=== PATIENT | female | born 1970 | race Caucasian/White ===

== ENCOUNTER 2016-11-03 13:52 | Outpatient (CLI) ==
[2014-12-12 08:52] VITALS: BMI 28.1
[2016-11-03 14:13] LABS: BILIRUBIN,URINE Negative (NEGATIVE); KETONES,URINE Negative (NEGATIVE); LEUKOCYTE ESTERASE ,URINE Negative (NEGATIVE); NITRITE,URINE Negative (NEGATIVE); PROTEIN,URINE Negative (NEGATIVE); URINE, BLOOD Trace-lysed (NEGATIVE)
[2016-11-03 14:14] LABS: BASOPHILS # (AUTO) 0.1 K/uL (0-0.2); BASOPHILS % (AUTO) 0.9 % (0.0-3.0); EOSINOPHILS # (AUTO) 0.1 K/ul (0.0-0.7); EOSINOPHILS % (AUTO) 1.7 % (0.0-7.0); HEMATOCRIT 44.7 % (37.0-47.0); HEMOGLOBIN 14.7 g/dl (12.0-16.0); IMMATURE GRANULOCYTE % (AUTO) 0.2 % (0.0-5.0); LYMPHOCYTES # (AUTO) 2.8 K/uL (0.60-3.4); LYMPHOCYTES % (AUTO) 33.5 (10.0-50.0); MEAN CORPUSCULAR HGB CONC 32.9 (31.8-35.4); MEAN CORPUSCULAR VOLUME 88.2 fl (81.0-99.0); MONOCYTES # (AUTO) 0.6 K/uL (0.4-2.0); MONOCYTES % (AUTO) 7.6 (0-10); NEUTROPHILS # (AUTO) 4.8 K/ul (2.0-6.9); NEUTROPHILS % (AUTO) 56.1; PLATELET COUNT 192 10^3/uL (140-440); RED BLOOD COUNT 5.07 10^6/ul (4.20-5.40); WHITE BLOOD COUNT 8.46 K/ul (4.6-10.2)
[2016-11-03 14:24] LABS: ADD URINE MICROSCOPIC YES
[2016-11-03 14:26] LABS: BACTERIA,URINE 1+ (NOT PRESENT)
[2016-11-03 14:48] LABS: ALBUMIN 4.2 g/dL (3.4-5.0); ALBUMIN/GLOBULIN RATIO 1.27; ANION GAP 15.1; BILIRUBIN,TOTAL 0.53 mg/dL (0.00-1.20); BUN/CREATININE RATIO 14.45; CALCIUM 9.4 mg/dL (8.2-10.2); CREATININE 0.83 mg/dL (0.60-1.30); POTASSIUM 4.1 mmol/L (3.5-5.10); TOTAL PROTEIN 7.5 g/dL (6.4-8.2)
--- NOTE | 2016-11-03 15:45 | DI ---
EXAM: Chest two view, frontal and lateral views. HISTORY: Anxiety disorder. COMPARISON: 03/15/2012. FINDINGS: The heart size is normal. There is no pulmonary vascular congestion. The lungs are daniel r. No pleural effusion or pneumothorax is seen. No acute osseous abnormality identified. Cholecys tectomy clips noted. Since the prior study, there has been no significant interval change. IMPRESSION: No acute cardiopulmonary process.
== END 2016-11-03 13:53 | disposition home or self-care (01) ==
LOC: LAB 13:52
PROVIDERS: ATTEND Nurse Practitioner Family
DX: F41.9 Anxiety disorder, unspecified (principal); M54.6 Pain in thoracic spine
CPT/HCPCS: 36415; 80053; 81001; 85025; 87086; 93005; 93010

== ENCOUNTER 2016-11-10 06:39 | Outpatient (CLI) ==
[2014-12-12 08:52] VITALS: BMI 28.1
--- NOTE | 2016-11-10 14:17 | ECHOSTRESS ---
Date of Exam: 11/10/16 Ordering Physician: MONA Reason for Echo: ABNORMAL EKG, IRREGULAR HR, STRESS TEST--NO ISCHEMIA Auscultation: S1, S2 M-Mode Normal Adult Results LV Dimensions Normal Adult Results AoV Opening excursions >1.6 LVEDD-base- 3.5-5.8 Ao root dimensions 2.0-3.7 LVESD-base- 3.1-4.6 L. Atrium dimensions 1.9-3.8 Post. Wall thickness 0.8-1.1 IV septum (thickness) 0.7-1.2 Post. Wall excursion 0.72-1.3 Septal motion Systolic motion R. Ventricular cavity 1.5-2.0 LVEF 60% Paradoxical septal wall motion 2-D: NORMAL LEFT VENTRICULAR CONTRACTILITY--RESTING AND POST EXERCISE M-MODE: MV: AV: TV: PV: CHAMBER SIZE: WALL MOTION: NORMAL LEFT VENTRICULAR CONTRACTILITY--RESTING AND POST EXERCISE PERICARDIUM: INTERPRETATION: 1. NORMAL LEFT VENTRICULAR CONTRACTILITY--RESTING AND POST EXERCISE MTDD
--- NOTE | 2016-11-10 14:18 | STRESS ---
Date of Test: 11/10/16 Ordering Physician: SOFIA CLEMENTS Reason for Exam: ABNORMAL EKG, IRREGULAR HR, CHEST PAIN, MVP Current Medications: LISINOPRIL, METOPROLOL, XANAX, LIPITOR Physical Findings: S1, S2, NO S3 Target Heart Rate: 148/175 Resting EKG: SINUS RHYTHM/NO ACUTE CHANGES STAGE MPH/GRADE HEART RATE BPM BLOOD PRESSURE mmhg RHYTHM S-T SEGMENT UP DOWN SYMPTOMS,COMMENTS At Rest 53 118/58 SR X NONE 1 1.7/10% 132 136/82 SR X NONE 2 2.5/12% 3 3.4/14% 4 4.2/16% 5 5.0/18% Immediately After [] [] [] [] Total Time: Maximum Heart Rate Reached: [] Reason for Termination: [] Minutes Post Exercise HeartRate Blood Pressure Minutes Post Exercise HeartRate Blood Pressure Minutes Post Exercise HeartRate Blood Pressure INTERPRETATION: 1. []
== END 2016-11-10 06:40 | disposition home or self-care (01) ==
LOC: CAR 06:39
PROVIDERS: ATTEND Nurse Practitioner Family
DX: R94.31 Abnormal electrocardiogram [ECG] [EKG] (principal)

== ENCOUNTER 2017-01-02 08:09 | Outpatient (CLI) ==
[2014-12-12 08:52] VITALS: BMI 28.1
[2017-01-02 08:37] LABS: HEMATOCRIT 44.1 % (37.0-47.0); HEMOGLOBIN 15.4 g/dl (12.0-16.0); MEAN CORPUSCULAR HEMOGLOBIN 31.6 pg (27.0-31.0); MEAN CORPUSCULAR HGB CONC 34.9 (31.8-35.4); MEAN CORPUSCULAR VOLUME 90.6 fl (81.0-99.0); RED BLOOD COUNT 4.87 10^6/ul (4.20-5.40); WHITE BLOOD COUNT 11.75 K/ul (4.6-10.2)
[2017-01-02 08:57] LABS: ALBUMIN 3.7 g/dL (3.4-5.0); ANION GAP 13.4; BUN/CREATININE RATIO 15.9; CALCIUM 9.5 mg/dL (8.2-10.2); CHOL/HDL RATIO 3.2 (4.5-5.5); CREATININE 0.88 mg/dL (0.60-1.30); PHOSPHORUS 3.3 mg/dL (2.5-4.9); POTASSIUM 4.4 mmol/L (3.5-5.10)
[2017-01-03 06:24] LABS: URINE CREATINE 120.8 mg/dL (Not Estab.)
== END 2017-01-02 08:10 | disposition home or self-care (01) ==
LOC: LAB 08:09
PROVIDERS: ATTEND Specialist
DX: R80.1 Persistent proteinuria, unspecified (principal)
CPT/HCPCS: 36415; 80061; 80069; 82570; 84156; 85027

== ENCOUNTER 2017-07-29 13:46 | Outpatient (CLI) ==
[2014-12-12 08:52] VITALS: BMI 28.1
[2017-07-29 13:58] LABS: BILIRUBIN,URINE Negative (NEGATIVE); KETONES,URINE Negative (NEGATIVE); LEUKOCYTE ESTERASE ,URINE 1+ (NEGATIVE); NITRITE,URINE Negative (NEGATIVE); PH,URINE 5.5 (5-9); PROTEIN,URINE 1+ (NEGATIVE); URINE, BLOOD 2+ (NEGATIVE)
[2017-07-29 14:18] LABS: ADD URINE MICROSCOPIC YES
[2017-07-29 14:24] LABS: BACTERIA,URINE 1+ (NOT PRESENT)
== END 2017-07-29 13:47 | disposition home or self-care (01) ==
LOC: LAB 13:46
PROVIDERS: ATTEND Nurse Practitioner Family
DX: R31.9 Hematuria, unspecified (principal)
CPT/HCPCS: 81001; 87086

== ENCOUNTER 2017-08-06 07:19 | Outpatient (CLI) ==
[2014-12-12 08:52] VITALS: BMI 28.1
[2017-08-06 07:52] LABS: HEMATOCRIT 43.4 % (37.0-47.0); HEMOGLOBIN 15.3 g/dl (12.0-16.0); MEAN CORPUSCULAR HEMOGLOBIN 33.5 pg (27.0-31.0); MEAN CORPUSCULAR HGB CONC 35.3 (31.8-35.4); RED BLOOD COUNT 4.57 10^6/ul (4.20-5.40); WHITE BLOOD COUNT 9.45 K/ul (4.6-10.2)
[2017-08-06 07:55] LABS: BILIRUBIN,URINE Negative (NEGATIVE); KETONES,URINE Negative (NEGATIVE); LEUKOCYTE ESTERASE ,URINE Negative (NEGATIVE); NITRITE,URINE Negative (NEGATIVE); PH,URINE 5.5 (5-9); PROTEIN,URINE Negative (NEGATIVE); URINE, BLOOD Trace-lysed (NEGATIVE)
[2017-08-06 07:56] LABS: ADD URINE MICROSCOPIC YES
[2017-08-06 08:16] LABS: ALBUMIN 3.7 g/dL (3.4-5.0); ANION GAP 12.4; BUN/CREATININE RATIO 17.97; CALCIUM 9.8 mg/dL (8.2-10.2); CHOL/HDL RATIO 3.6 (4.5-5.5); CREATININE 0.89 mg/dL (0.60-1.30); PHOSPHORUS 3.2 mg/dL (2.5-4.9); POTASSIUM 4.4 mmol/L (3.5-5.10); URIC ACID 4.9 mg/dL (2.4-6.0)
[2017-08-07 08:14] LABS: URINE CREATININE 29.8 mg/dL (Not Estab.); URINE TOTAL PROTEIN 12.8 mg/dL (Not Estab.)
== END 2017-08-06 07:20 | disposition home or self-care (01) ==
LOC: LAB 07:19
PROVIDERS: ATTEND Specialist
DX: N18.2 Chronic kidney disease, stage 2 (mild) (principal); E78.5 Hyperlipidemia, unspecified
CPT/HCPCS: 36415; 80061; 80069; 81001; 82570; 84156; 84550; 85027

== ENCOUNTER 2017-11-26 16:07 | Outpatient (CLI) ==
[2014-12-12 08:52] VITALS: BMI 28.1
== END 2017-11-26 16:08 | disposition home or self-care (01) ==
LOC: LAB 16:07
PROVIDERS: ATTEND Specialist
DX: R80.1 Persistent proteinuria, unspecified (principal)
CPT/HCPCS: 36415; 80069; 81001; 82570; 84156

== ENCOUNTER 2018-03-22 07:30 | Outpatient (CLI) ==
[2014-12-12 08:52] VITALS: BMI 28.1
== END 2018-03-22 07:31 | disposition home or self-care (01) ==
LOC: LAB 07:30
PROVIDERS: ATTEND Nurse Practitioner Family
DX: F41.9 Anxiety disorder, unspecified (principal); N18.2 Chronic kidney disease, stage 2 (mild); Z72.0 Tobacco use
CPT/HCPCS: 36415; 80061; 80069; 82570; 84156; 84443; 85025

== ENCOUNTER 2018-08-12 14:52 | Outpatient (CLI) ==
[2014-12-12 08:52] VITALS: BMI 28.1
== END 2018-08-12 14:53 | disposition home or self-care (01) ==
LOC: LAB 14:52
PROVIDERS: ATTEND Specialist
DX: R80.1 Persistent proteinuria, unspecified (principal)
CPT/HCPCS: 36415; 80069; 81001; 82570; 84156; 84550

== ENCOUNTER 2019-04-07 07:18 | Outpatient (CLI) ==
[2014-12-12 08:52] VITALS: BMI 28.1
== END 2019-04-07 07:19 | disposition home or self-care (01) ==
LOC: LAB 07:18
PROVIDERS: ATTEND Specialist
DX: N18.2 Chronic kidney disease, stage 2 (mild) (principal); E78.5 Hyperlipidemia, unspecified
CPT/HCPCS: 36415; 80053; 80061; 81001; 82550; 82570; 84156; 84550

== ENCOUNTER 2019-04-19 10:01 | Emergency (ER) ==
[2019-04-19 10:05] VITALS: BP 142/90; TEMP 98.7; BMI 31.0
--- NOTE | 2019-04-19 10:05 | ED.PDOC ---
General ED Provider: Dr. MEGHNA VILLANUEVA Chief Complaint: Urinary Problem Stated Complaint: Complains of pain in lower abdomen and suprapubic region, vaginal region. Low back aching. Denies fever, chills , dysuria or vaginal discharge. States eval by her kidney specialist several days ago but urine test was neg for UTI. Past history kidney disorder. Time Seen by Physician: 10:15 Mode of Arrival: Walk-In Information Source: Patient Exam Limitations: No limitations Primary Care Provider: [facility] Nursing and Triage Documentation Reviewed and Agree: Yes Does patient meet sepsis criteria?: No System Inflammatory Response Syndrome: Not Applicable Sepsis Protocol: For patient's 13 years and over: Temp is 96.8 and below OR 101 and greater Pulse >90 BPM Resp >20/minute Acutely Altered Mental Status Are patient's symptoms suggestive of a new infection, such as: -Pneumonia -Skin, Soft Tissue -Endocarditis -UTI -Bone, Joint Infection -Implantable Device -Acute Abdominal Infection -Wound Infection -Meningitis -Blood Stream Catheter Infection -Unknown Complaint Exam - Complaint/Exam Patient Complains of: Reports: Pain Onset/Duration: 3-4 days Symptoms Are: Still present Timing: Intermittent Initial Severity: Moderate Current Severity: Mild Location of Pain: Reports: Suprapubic Character: Reports: Sharp, Dull, Cramping Aggravating: Reports: Movement Alleviating: Reports: Position Associated Signs and Symptoms: Denies: Diaphoresis, Back pain, Fever, Hematuria , Dysuria, Constipation, Blood in stool, Rectal pain, Appetite change, Nausea, Vomiting, Decreased urine output, Increased urine frequency, Increased thirst, Decreased activity, Lethargy, Abdominal Pain, Bubble bath use, Vaginal bleeding , Vaginal discharge, Genital swelling, Genital blisters, Retained foreign body Ectopic Risk Factors: Reports: None Ovarian Torsion Risk Factors: Reports: None Related Surgical History: Reports: None Abdominal Findings: Present: None Vulva Exam: Present: Normal Findings Vaginal Exam: Present: Normal Findings Adnexal Exam: Present: Normal Findings Rectal Exam: Present: Normal Findings. Absent: Internal hemorrhoids, External hemorrhoids Review of Systems - Review Of Systems Constitutional: Reports: No symptoms Eyes: Reports: No symptoms Ears, Nose, Mouth, Throat: Reports: No symptoms Respiratory: Reports: No symptoms Cardiac: Reports: No symptoms GI: Reports: No symptoms : Reports: No symptoms, Frequency Musculoskeletal: Reports: No symptoms Skin: Reports: No symptoms Neurological: Reports: No symptoms Endocrine: Reports: No symptoms Hematologic/Lymphatic: Reports: No symptoms All Other Systems: Reviewed and Negative Past Medical History - Past Medical History Previously Healthy: Yes Endocrine: Reports: None Cardiovascular: Reports: None Respiratory: Reports: None Hematological: Reports: None Gastrointestinal: Reports: None Genitourinary: Reports: Other (Renal structural or tubular dysfunction ) Neuro/Psych: Reports: None Musculoskeletal: Reports: None Cancer: Reports: None - Surgical History General Surgical History: Reports: Hysterectomy - Family History Family History: Reports: None - Social History Smoking Status: Current every day smoker Hx Substance Use: No Alcohol Screening: None Physical Exam - Physical Exam Appearance: Well-appearing, No pain distress, Well-nourished Eyes: ДМИТРИЙ, EOMI, Conjunctiva clear ENT: Ears normal, Nose normal, Oropharynx normal Respiratory: Airway patent, Breath sounds clear, Breath sounds equal, Respirations nonlabored Cardiovascular: RRR, Pulses normal, No rub, No murmur GI/: Soft (Pelvic-normal bimanual vaginal -pelvic exam without discomfort or findings. FRANCIE wnl), Nontender, No masses, Bowel sounds normal, No Organomegaly Musculoskeletal: Normal strength (Mild tenderness bilat LS region), ROM intact, No edema, No calf tenderness Skin: Warm, Dry, Normal color Neurological: Sensation intact, Motor intact, Reflexes intact, Cranial nerves intact, Alert, Oriented Psychiatric: Affect appropriate, Mood appropriate Interpretation - Radiology Interpretation Exam Interpreted: CT Scan Xray Comments: No acute findings. Mild diverticular disease Radiology Interpretation By: Radiologist Re-Evaluation - Re-Evaluation Time of Re-Evaluation: 12:30 Status: Improved Vital Signs Stable: Yes Appearance: NAD Lungs: Clear Skin: Warm and Dry Neuro: Alert and Oriented X3 CV: RRR Critical Care Note - Critical Care Note Total Time (mins): 30 Course - Course Hematology/Chemistry: 04/19/19 10:35 04/19/19 10:35 Orders, Labs, Meds: Lab Review 04/19/19 04/19/19 04/19/19 10:35 10:35 10:35 WBC 6.93 RBC 4.47 Hgb 14.7 Hct 42.7 MCV 95.5 MCH 32.9 H MCHC 34.4 RDW Coeff of Kate 12.1 Plt Count 191 Immature Gran % (Auto) 0.4 Neut % (Auto) 60.5 Lymph % (Auto) 29.9 [place] % (Auto) 6.8 Eos % (Auto) 1.7 Baso % (Auto) 0.7 Immature Gran # (Auto) 0.0 Neut # (Auto) 4.2 Lymph # (Auto) 2.1 [place] # (Auto) 0.5 Eos # (Auto) 0.1 Baso # (Auto) 0.1 Sodium 141.8 Potassium 3.98 Chloride 107.9 H Carbon Dioxide 23.8 Anion Gap 14.08 BUN 14.9 Creatinine 0.97 Estimated GFR (MDRD) 62.00 BUN/Creatinine Ratio 15.36 Glucose 100.5 Calcium 9.33 Total Bilirubin 0.61 AST 37.1 H ALT 32.6 Alkaline Phosphatase 128.5 H Total Protein 7.47 Albumin 4.49 Globulin 2.98 Albumin/Globulin Ratio 1.50 Urine Color Yellow Urine Clarity Clear Urine pH 6.0 Ur Specific [place] 1.010 Urine Protein Trace Urine Glucose (UA) Negative Urine Ketones Negative Urine Blood Trace-intact Urine Nitrite Negative Urine Bilirubin Negative Urine Urobilinogen 0.2 Ur Leukocyte Esterase Negative Urine Microscopic RBC 2-5 Ur Squamous Epith Cells 5-10 Urine Mucus Trace Orders Category Date Time Status NPO REMINDER: IMAGING ONCE CARE 04/19/19 10:32 Completed IV [ED IV/MEDIPORT/POWERPORT] .ONCE EMERGENCY 04/19/19 10:27 Active CBC W/ AUTO DIFF Stat LAB 04/19/19 10:35 Completed CMP [COMPREHENSIVE METABOLIC PANEL] Stat LAB 04/19/19 10:35 Completed GUAIAC [OCCULT BLOOD, STOOL] Stat LAB 04/19/19 12:24 Uncollected UA [URINALYSIS C & S IF INDICATED] Stat LAB 04/19/19 10:35 Completed 0.9 % Sodium Chloride [Saline Flush] MEDS 04/19/19 10:27 Active 1 syr IVF PRN PRN Ketorolac Tromethamine [Toradol] MEDS 04/19/19 12:25 Stat 30 mg IVP ONCE STA Sodium Chloride 0.9% [Sodium Chloride] 1,000 ml MEDS 04/19/19 10:[address] ABDOMEN/PELVIS W/WO CONTRAS Stat RADS 04/19/19 10:31 Completed Medications Generic Name Dose Route Start Last Admin Trade Name Freq PRN Reason Stop Dose Admin Sodium Chloride 1,000 mls @ 500 mls/hr 04/19/19 10:31 04/19/19 11:07 Sodium Chloride IV 04/19/19 12:30 500 mls/hr BOLUS STA Administration Sodium Chloride 1 syr 04/19/19 10:27 Saline Flush IVF PRN PRN To flush IV Discontinued Medications Generic Name Dose Route Start Last Admin Trade Name Freq PRN Reason Stop Dose Admin Ketorolac Tromethamine 30 mg 04/19/19 12:25 Toradol IVP 04/19/19 12:26 ONCE STA Vital Signs: Temp Pulse Resp BP Pulse Ox 04/19/19 10:01 98.7 F 84 16 142/90 H 97 Departure - Departure Time of Disposition: 12:45 Disposition: HOME SELF-CARE Discharge Problem: Abdominal discomfort, bilateral lower quadrant, Diverticulosis Instructions: Pelvic Pain in Women (ED), Diverticulosis (ED) Condition: Good Pt referred to PMD for follow-up: Yes (See PCP in 1-2 weeks) IPMP verified?: No Additional Instructions: Stay well hydrated Follow up if symptoms return or worsen Allergies/Adverse Reactions: Allergies No Known Allergies Allergy (Unverified 07/29/17 11:27) Home Medications: Ambulatory Orders Atorvastatin Calcium 40 mg PO DAILY 11/14/15 Lisinopril 5 mg PO BID 11/14/15 Alprazolam [Xanax] 0.5 mg PO ONCE PRN 04/19/19 Melatonin 1 mg PO DAILY 04/19/19 [place]-3/Dha/Epa/Fish Oil [Fish Oil 500 mg Softgel] 1 each PO DAILY 04/19/19 Disposition Discussed With: Patient
[2019-04-19] MEDS ORDERED: SODIUM CHLORIDE 1,000 ML IV STA (10:31)
--- NOTE | 2019-04-19 11:55 | CT ---
EXAM: CT abdomen pelvis with and without contrast HISTORY: Lower abdominal pain COMPARISON: None TECHNIQUE: CT abdomen pelvis performed with and without intravenous contrast. Coronal and sagittal reformatted images obtained. FINDINGS: Lung bases clear. No free air. No acute abnormalities of the bones. Mild degenerative c hange in the spine. Heart normal in size. Liver appears normal. Patient status post cholecystectom y. Pancreas unremarkable. Spleen unremarkable. Adrenals unremarkable. Sub centimeter hypodensity right kidney, too small to characterize. No hydronephrosis or nephrolithiasis. No calculi visualize d in normal course of the ureters. Aorta normal in caliber. Mild atherosclerosis. Small fat-contai noris periumbilical hernia. Small hiatal hernia. Duodenal diverticulum. No dilated loops small julianne l. Appendix appears normal. Colon unremarkable. Patient status post hysterectomy. Bladder only mi ldly distended and poorly evaluated, grossly unremarkable. No lymphadenopathy or ascites. No inflam matory stranding identified in the abdomen pelvis. IMPRESSION: 1. No acute abnormality identified in the abdomen or pelvis. 2. Duodenal diverticulum 3. Small hiatal hernia.
[2019-04-19] MEDS ORDERED: TORADOL IVP STA (12:25)
== END 2019-04-19 13:26 | disposition home or self-care (01) ==
LOC: ED 10:01
DX: K57.90 Diverticulosis of intestine, part unspecified, without perforation or abscess without bleeding (principal); F17.210 Nicotine dependence, cigarettes, uncomplicated; Z79.899 Other long term (current) drug therapy
CPT/HCPCS: 36415; 80053; 81001; 82272; 85025; 96360; 96361; 96374; 99283